=== PATIENT | female | born 1955 | race Caucasian/White ===

== ENCOUNTER 2017-01-27 11:38 | Emergency (ER) | payer BC ==
[~2017-01-27] VITALS: Ht 160 cm; Wt 73.0 kg
[2017-01-27 11:58] LABS: BASOPHILS # (AUTO) 0.1 10^3/uL (0.0-0.1); BASOPHILS % (AUTO) 1 % (0-10); EOSINOPHILS # (AUTO) 0.2 10^3/uL (0.0-0.3); EOSINOPHILS % (AUTO) 2 % (0-10); LYMPHOCYTES # (AUTO) 1.8 X 10^3 (1.0-4.0); LYMPHOCYTES % (AUTO) 20 % (12-44); MEAN CORPUSCULAR HEMOGLOBIN 30 PG (25-34); MEAN CORPUSCULAR HGB CONC 35 G/DL (32-36); MEAN CORPUSCULAR VOLUME 87 FL (80-99); MEAN PLATELET VOLUME 9.5 FL (7.4-10.4); MONOCYTES # (AUTO) 1.6 X 10^3 (0.0-1.0); MONOCYTES % (AUTO) 17 % (0-12); NEUTROPHILS # (AUTO) 5.5 X 10^3 (1.8-7.8); NEUTROPHILS % (AUTO) 60 % (42-75); PLATELET COUNT 238 10^3/uL (130-400); RED BLOOD COUNT 4.49 10^6/uL (4.35-5.85); RED CELL DISTRIBUTION WIDTH 12.5 % (10.0-14.5); WHITE BLOOD COUNT 9.1 10^3/uL (4.3-11.0)
[2017-01-27 12:04] LABS: INR 1.1 (0.8-1.4); PROTHROMBIN TIME PATIENT 13.9 SEC (12.2-14.7)
[2017-01-27 12:13] LABS: ALANINE AMINOTRANSFERASE 22 U/L (0-55); ANION GAP 11 MMOL/L (5-14); ASPARTATE AMINO TRANSFERASE 21 U/L (5-34); BILIRUBIN,TOTAL 1.6 MG/DL (0.1-1.0); BLOOD UREA NITROGEN 14 MG/DL (7-18); BUN/CREATININE RATIO 18; CALCIUM 8.9 MG/DL (8.5-10.1); CARBON DIOXIDE 22 MMOL/L (21-32); CHLORIDE 104 MMOL/L (98-107); GFR ESTIMATED > 60; GLUCOSE 101 MG/DL (70-105); MAGNESIUM 2.1 MG/DL (1.8-2.4); POTASSIUM 3.9 MMOL/L (3.6-5.0); SODIUM 137 MMOL/L (135-145); TOTAL PROTEIN 7.1 GM/DL (6.4-8.2)
--- NOTE | 2017-01-27 12:25 | Diagnostic Imaging Report ---
INDICATION: Fall and cough PA and lateral views of the chest are obtained. There is a rounded area of airspace disease involving what appears to be the superior segment of the left lower lobe. There is no evidence of pneumothorax. No significant pleural fluid is identified. IMPRESSION: Focal parenchymal density in the left lower lobe could be related to contusion from recent fall, however, the appearance is most suggestive of pneumonia. Radiographic followup is recommended to document resolution. Dictated by: Dictated on workstation # [id number]
[2017-01-27 12:31] LABS: MYOGLOBIN SERUM 57.7 NG/ML (10.0-92.0)
--- NOTE | 2017-01-27 13:02 | ED Cardiac General ---
History of Present Illness General Chief Complaint: Chest Pain Stated Complaint: SOA Nursing Triage Note: Patient reports coughing with lightheadedness and headache, patient reports passed out after a coughing fit. patient presented to [facility] urgent care and subsequently sent to the ER, via EMS. patient reports SOA. Source: patient, family Exam Limitations: no limitations History of Present Illness Time seen by provider: 11:41 Initial Comments This 61-year-old woman presents to the emergency room as a referral from [facility] Urgent Care with complaints of cough, sinus congestion, headache, and an episode of syncope. Symptoms began on January 24. She reports a coworker has been ill with similar symptoms. She has paroxysms of coughing for sometimes up to 30 minutes. She had a syncopal episode on Friday the in the shower. She denies any injury but does believe she completely lost consciousness briefly. She reports her headache was present prior to that episode. Today she reports feeling dizzy upon standing. She feels short of air and nauseated. She has also had a little bit of diarrhea. An EKG was performed at Urgent Care. She was referred to the emergency room because of concerns about a left bundle branch block. Patient denies ever having chest pain over the past few days. IV fluids were initiated by EMS. NTG SL CUT OFF SAW OPERATOR METAL: No ASA po CUT OFF SAW OPERATOR METAL: Yes (324mg) Allergies and Home Medications Allergies Coded Allergies: No Known Drug Allergies (Unverified , 01/27/17) Home Medications Azithromycin 250 Mg Tablet, 250 MG PO UD, #6 TAKE 2 TABLETS ON DAY ONE THEN TAKE 1 TABLET DAILY FOR FOUR MORE DAYS Prescribed by: CHARLES MCCLELLAND on 01/27/17 1303 Review of Systems Constitutional: no symptoms reported EENTM: No Symptoms Reported Respiratory: See HPI Cardiovascular: See HPI Gastrointestinal: See HPI Genitourinary: No Symptoms Reported Musculoskeletal: no symptoms reported Skin: no symptoms reported Psychiatric/Neurological: See HPI Endocrine: No Symptoms Reported Hematologic/Lymphatic: No Symptoms Reported Past Ngmjtdo-Iduzil-Wdreri Hx Patient Social History Alcohol Use: Denies Use Recreational Drug Use: No Smoking Status: Never a Smoker 2nd Hand Smoke Exposure: No Recent Foreign Travel: No Contact w/Someone Who Travel: No Recent Infectious Disease Expo: No Recent Hopitalizations: No Physical Abuse: No Sexual Abuse: No Surgeries History of Surgeries: Yes Surgeries: Appendectomy, Eye Surgery, Gallbladder, Hysterectomy Respiratory History of Respiratory Disorde: No Cardiovascular History of Cardiac Disorders: No Neurological History of Neurological Disord: No Genitourinary History of Genitourinary Disor: No Gastrointestinal History of Gastrointestinal Di: No Musculoskeletal History of Musculoskeletal Dis: No Endocrine History of Endocrine Disorders: No HEENT History of HEENT Disorders: No Cancer History of Cancer: No Psychosocial History of Psychiatric Problem: No Suicide Risk Score: 0 Integumentary History of Skin or Integumenta: No Blood Transfusions History of Blood Disorders: No Physical Exam Vital Signs Vital Sign - Last 12Hours 01/27/17 11:45 Temp 99.3 Pulse 117 Resp 16 B/P (MAP) 129/81 Pulse Ox 94 O2 Delivery Room Air Capillary Refill : Less Than 3 Seconds General Appearance: No Apparent Distress, WD/WN HEENT: PERRL/EOMI, Normal ENT Inspection Neck: Normal Inspection Respiratory: Lungs Clear, Normal Breath Sounds, No Accessory Muscle Use, No Respiratory Distress Cardiovascular: No Edema, No Murmur, Tachycardia (with regular rhythm) Gastrointestinal: Normal Bowel Sounds, Non Tender, Soft Extremity: Normal Inspection, No Pedal Edema Neurologic/Psychiatric: Alert, Oriented x3, No Motor/Sensory Deficits, Normal Mood/Affect, strategic advisor II-XII Norm as Tested Skin: Normal Color, Warm/Dry Progress/Results/Core Measures Results/Orders Lab Results Laboratory Tests Test 01/27/17 11:43 Range/Units White Blood Count 9.1 4.3-11.0 10^3/uL Red Blood Count 4.49 4.35-5.85 10^6/uL Hemoglobin 13.5 11.5-16.0 G/DL Hematocrit 39 35-52 % Mean Corpuscular Volume 87 80-99 FL Mean Corpuscular Hemoglobin 30 25-34 PG Mean Corpuscular Hemoglobin Concent 35 32-36 G/DL Red Cell Distribution Width 12.5 10.0-14.5 % Platelet Count 238 130-400 10^3/uL Mean Platelet Volume 9.5 7.4-10.4 FL Neutrophils (%) (Auto) 60 42-75 % Lymphocytes (%) (Auto) 20 12-44 % Monocytes (%) (Auto) 17 H 0-12 % Eosinophils (%) (Auto) 2 0-10 % Basophils (%) (Auto) 1 0-10 % Neutrophils # (Auto) 5.5 1.8-7.8 X 10^3 Lymphocytes # (Auto) 1.8 1.0-4.0 X 10^3 Monocytes # (Auto) 1.6 H 0.0-1.0 X 10^3 Eosinophils # (Auto) 0.2 0.0-0.3 10^3/uL Basophils # (Auto) 0.1 0.0-0.1 10^3/uL Prothrombin Time 13.9 12.2-14.7 SEC INR Comment 1.1 0.8-1.4 Activated Partial Thromboplast Time 31 24-35 SEC Sodium Level 137 135-145 MMOL/L Potassium Level 3.9 3.6-5.0 MMOL/L Chloride Level 104 98-107 MMOL/L Carbon Dioxide Level 22 21-32 MMOL/L Anion Gap 11 5-14 MMOL/L Blood Urea Nitrogen 14 7-18 MG/DL Creatinine 0.80 0.60-1.30 MG/DL Estimat Glomerular Filtration Rate > 60 BUN/Creatinine Ratio 18 Glucose Level 101 70-105 MG/DL Calcium Level 8.9 8.5-10.1 MG/DL Magnesium Level 2.1 1.8-2.4 MG/DL Total Bilirubin 1.6 H 0.1-1.0 MG/DL Aspartate Amino Transf (AST/SGOT) 21 5-34 U/L Alanine Aminotransferase (ALT/SGPT) 22 0-55 U/L Alkaline Phosphatase 73 40-136 U/L Myoglobin 57.7 10.0-92.0 NG/ML Troponin I < 0.30 <0.30 NG/ML Total Protein 7.1 6.4-8.2 GM/DL Albumin 4.0 3.2-4.5 GM/DL My Orders Orders - CHARLES BERMAN MD Ekg Tracing (01/27/17 11:41) Cbc With Automated Diff (01/27/17 11:53) Magnesium (01/27/17 11:53) Cardiac Profile 1 (01/27/17 11:53) Comprehensive Metabolic Panel (01/27/17 11:53) Myoglobin Serum (01/27/17 11:53) Protime With Inr (01/27/17 11:53) Partial Thromboplastin Time (01/27/17 11:53) O2 (01/27/17 11:53) Monitor-Rhythm Ecg Trace Only (01/27/17 11:53) Saline Lock/Iv-Start (01/27/17 11:53) Chest Pa/Lat (2 View) (01/27/17 11:53) Vital Signs/I&O Vital Sign - Last 12Hours 01/27/17 01/27/17 01/27/17 11:45 11:45 13:15 Temp 99.3 Pulse 117 106 Resp 16 18 B/P (MAP) 129/81 Pulse Ox 94 94 O2 Delivery Room Air Room Air Room Air Blood Pressure Mean: 97 Progress Note : Progress Note Patient was found to have a left lower lobe pneumonia on workup. She was given a liter of IV fluids with some improvement in her tachycardia. A prior EKG could not be obtained. Left bundle branch block in absence of chest pain was discussed with Dr. Stover. He would like the patient to follow-up in the office for further evaluation. ECG Initial ECG Impression Date: Jan 27, 2017 Initial ECG Impression Time: 11:41 Initial ECG Rate: 113 Initial ECG Rhythm: S.Tach Comment Sinus tachycardia with no ST elevation or depression. Left bundle branch block. No significant axis deviation. Diagnostic Imaging Diagonstic Imaging: Xray Plain Films/CT/US/NM/MRI: chest Comments Chest x-ray viewed by me and report reviewed. See report below: NAME: AUBREY LERMA [facility] REC#: [id number] PT STATUS: DEP ER : [id number] PHYSICIAN: CHARLES BERMAN MD ADMIT DATE: 01/27/17/ER Signed Date of Exam: 01/27/17 CHEST PA/LAT (2 VIEW) INDICATION: Fall and cough PA and lateral views of the chest are obtained. There is a rounded area of airspace disease involving what appears to be the superior segment of the left lower lobe. There is no evidence of pneumothorax. No significant pleural fluid is identified. IMPRESSION: Focal parenchymal density in the left lower lobe could be related to contusion from recent fall, however, the appearance is most suggestive of pneumonia. Radiographic followup is recommended to document resolution. Dictated by: Dictated on workstation # [id number] Dict: 01/27/17 1220 Trans: 01/27/17 1427 Interpreted by: NURIS ESCOBAR MD Electronically signed by: NURIS ESCOBAR MD 01/27/17 1427 Departure Impression Impression: Primary Impression: Left lower lobe pneumonia Qualified Codes: J18.1 - Lobar pneumonia, unspecified organism Additional Impressions: Syncope Qualified Codes: R55 - Syncope and collapse Left bundle branch block Disposition: 01 HOME, SELF-CARE Condition: Improved Departure-Patient Inst. Decision time for Depature: 12:55 Referrals: AGAPITO STOVER MD ,LOCAL PHYSICIAN (PCP) Primary Care Physician Patient Instructions: Community-Acquired Pneumonia in Adults Add. Discharge Instructions: Complete your antibiotics as prescribed. Drink plenty of clear liquids. Follow-up with Dr. Pedroza and Dr. Stover as soon as possible. You may need a referral from Dr. Pedroza before seeing Dr. Stover. Return to the emergency room if symptoms worsen. Please asked Dr. Pedroza to obtain a follow-up x-ray in a week or two to document resolution of your pneumonia. All discharge instructions reviewed with patient and/or family. Voiced understanding. Scripts Azithromycin (Azithromycin) 250 Mg Tablet 250 MG PO UD, #6 TAB TAKE 2 TABLETS ON DAY ONE THEN TAKE 1 TABLET DAILY FOR FOUR MORE DAYS Prov: CHARLES BERMAN MD 01/27/17 Work/School Note: Work Release Form Date Seen in the Emergency Department: Jan 27, 2017 Return to Work: Jan 29, 2017 Restrictions: No Restrictions Copy Copies To 1: ISABEL PEDROZA MD Copies To 2: AGAPITO STOVER MD, JOSHUA T MD Jan 27, 2017 13:02
[2017-01-27] MEDS ORDERED: AZIT250T5 PO (13:03)
[2017-01-27 13:15] VITALS: BP 122/94
== END 2017-01-27 13:15 | disposition home or self-care (01) ==
LOC: EDUNIT# 11:38 → ER 11:40
DX: J18.1 Lobar pneumonia, unspecified organism (principal); I44.7 Left bundle-branch block, unspecified; Z90.49 Acquired absence of other specified parts of digestive tract; Z90.710 Acquired absence of both cervix and uterus
CPT/HCPCS: 36415; 71020; 80053; 83735; 83874; 84484; 85025; 85610; 85730; 93005; 93041

== ENCOUNTER → 2017-05-21 | Outpatient (CLI) | payer BC ==
[~2017-05-21] MED LIST: AZIT250T12 PO; CATHETER FLUSH 10 ML SYR IV PRN; REGADENOSON 0.4 MG/5 ML SYR (LEXISCAN) IV ONE
[2017-05-21 14:11] VITALS: BP 156/92
[2017-05-21 14:13] VITALS: BP 143/87
--- NOTE | 2017-05-22 01:24 | STRESS TEST ---
DATE OF SERVICE: 05/21/2017 LEXISCAN MYOVIEW STRESS TEST REPORT Baseline heart rate is 90, baseline blood pressure 126/75. Baseline EKG is sinus rhythm with left bundle branch block. In summary, patient was injected with 10.44 mCi of technetium-99 Myoview and the resting images were obtained. Then, the patient received 0.4 mg of Lexiscan followed by 30.9 mCi of technetium-99 Myoview. Throughout the test patient continued to have left bundle branch block. The resting and stress images were reviewed and compared in the short axis, horizontal long axis, and vertical long axis views. Review of the images showed breast attenuation, there is reversible ischemia involving the mid to apical anterior wall, anterior septum reverse ischemia at the basal to mid inferior wall and inferolateral wall. SSS is 12. SDS 7, TID value 1.03. On the gated images, the left ventricle appeared to be normal size with mild diffuse left ventricular hypokinesia, calculated ejection fraction 40%. CONCLUSION: 1. The patient tolerated Lexiscan well. 2. Breast attenuation with mild ischemia involving the mid to apical anterior wall, anterior septum and ischemia involving the basal to mid inferior wall and inferolateral wall. 3. Normal left ventricular size with mild diffuse left ventricular hypokinesia, calculated ejection fraction 40%. Job ID: [id number] DocumentID: [id number] Dictated Date: 05/21/2017 17:37:13 Oxyhydrogen Welder Date: 05/22/2017 00:08:55 Dictated By: AGAPITO RAO MD
== END ==
LOC: CARD 11:41
PROVIDERS: ATTEND Physician Assistant
DX: R07.9 Chest pain, unspecified (principal); I44.7 Left bundle-branch block, unspecified; R94.31 Abnormal electrocardiogram [ECG] [EKG]; R00.0 Tachycardia, unspecified
CPT/HCPCS: 78452; 93017

== ENCOUNTER 2017-05-28 07:25 | Day surgery (SDC) | payer BC ==
[2017-05-28] VITALS (10 sets, daily range): BP systolic 110–143; BP diastolic 57–90
[~2017-05-28] VITALS: Ht 160 cm; Wt 74.8 kg
[~2017-05-28 07:25] MED LIST changes: -CATHETER FLUSH 10 ML SYR IV PRN; -REGADENOSON 0.4 MG/5 ML SYR (LEXISCAN) IV ONE
[2017-05-28] MEDS ORDERED: LIDOCAINE 1% INJ 50 ML (XYLOCAINE) VIAL ONE (07:44)
[2017-05-28] MEDS ORDERED: HEParin (CATH LAB) 2,000 ML IV ONE (07:44)
[2017-05-28] MEDS ORDERED: NS IV 1000 ML 1,000 ML ONE (07:44)
[2017-05-28 08:13] LABS: BILIRUBIN,URINE NEGATIVE (NEGATIVE); CLARITY,URINE CLEAR; COLOR,URINE YELLOW; GLUCOSE, URINE (UA) NEGATIVE (NEGATIVE); KETONES,URINE NEGATIVE (NEGATIVE); LEUKOCYTE ESTERASE ,URINE 2+ (NEGATIVE); NITRITE,URINE NEGATIVE (NEGATIVE); PH,URINE 5 (5-9); PROTEIN,URINE NEGATIVE (NEGATIVE); UROBILINOGEN,URINE NORMAL (NORMAL)
[2017-05-28 08:14] LABS: HEMOGLOBIN 15.3 G/DL (11.5-16.0); MEAN PLATELET VOLUME 9.1 FL (7.4-10.4); RED BLOOD COUNT 5.07 10^6/uL (4.35-5.85); RED CELL DISTRIBUTION WIDTH 12.7 % (10.0-14.5); WHITE BLOOD COUNT 8.1 10^3/uL (4.3-11.0)
[2017-05-28 08:23] LABS: BACTERIA,URINE FEW /HPF; RBC,URINE 0-2 /HPF; WBC,URINE 0-2 /HPF
[2017-05-28] MEDS ORDERED: NS IV 1000 ML 1,000 ML IV SCH ×2 (08:30→09:15)
[2017-05-28 08:33] LABS: ALANINE AMINOTRANSFERASE 30 U/L (0-55); ALBUMIN 4.4 GM/DL (3.2-4.5); ALKALINE PHOSPHATASE 80 U/L (40-136); BILIRUBIN,TOTAL 1.1 MG/DL (0.1-1.0); BUN/CREATININE RATIO 21; CALCIUM 9.7 MG/DL (8.5-10.1); CARBON DIOXIDE 25 MMOL/L (21-32); CHLORIDE 107 MMOL/L (98-107); CREATININE SERUM 0.78 MG/DL (0.60-1.30); GFR ESTIMATED > 60; GLUCOSE 96 MG/DL (70-105); POTASSIUM 4.3 MMOL/L (3.6-5.0); SODIUM 142 MMOL/L (135-145); TOTAL PROTEIN 7.6 GM/DL (6.4-8.2)
[2017-05-28] MEDS ORDERED: MULT-884 PO (08:41)
[2017-05-28] MEDS ORDERED: SOY155CA PO (08:41)
[2017-05-28] MEDS ORDERED: MIDAZOLAM 5 MG/5 ML (VERSED) VIAL ONE (08:41)
[2017-05-28] MEDS ORDERED: ASPI-983 PO (08:41)
[2017-05-28] MEDS ORDERED: METO-351 PO (08:41)
[2017-05-28] MEDS ORDERED: BIOT5000 PO (08:41)
[2017-05-28] MEDS ORDERED: VITA100C20 PO (08:41)
[2017-05-28] MEDS ORDERED: fentaNYL INJECTION 100 MCG/2 ML AMP ONE (08:42)
--- NOTE | 2017-05-28 08:43 | Cardiac Procedure Note-CS/ASA ---
Pre-Procedure Note Pre-Op Procedure Note H&P Reviewed The H&P was reviewed, patient examined and no changes noted. Date H&P Reviewed: May 28, 2017 Time H&P Reviewed: 08:43 Conscious Sedation Pre-Proced Time Reviewed: 08:43 ASA Class: 3 Airway Mallampati Classification: ([place] appropriate class) I. II. III, IV Lungs Heart ASA score ASA 1: a normal healthy patient ASA 2: a patient with a mild systemic disease (mid diabetes, controlled hypertension, obesity x ASA 3: a patient with a severe systemic disease that limits activity (angina , COPD, prior Myocardial infarction) ASA 4: a patient with an incapacitating disease that is a constant threat to life (CHF, renal failure) ASA 5: a moribund patient not expected to survive 24 hrs. (ruptured aneurysm) ASA 6: a declared brain patient whose organs are being harvested. For emergent operations, add the letter E after the classification Grade 3 Sedation Plan: Analgesia, Amnesia, Plan communicated to team members, Discussed options with patient/fam, Discussed risks with patient/fam Note The patient is an appropriate candidate to undergo the planned procedure, sedation, and anesthesia. The patient immediately re-assessed prior to indication. AGAPITO RAO MD May 28, 2017 08:43
[2017-05-28 08:56] LABS: PROTHROMBIN TIME PATIENT 13.3 SEC (12.2-14.7)
--- NOTE | 2017-05-28 09:13 | Diagnostic Imaging Report ---
EXAMINATION: Portable erect AP chest at 0750 AM INDICATION: Preop heart catheter The heart size is within normal limits and stable when compared to 01/17/2017. The previous study did show prominent areas of pneumonia/atelectasis in the left perihilar region. That abnormality has resolved. The lungs are now clear and well aerated. There is no sign of failure, pneumonia or pleural effusion to indicate an acute abnormality. The mediastinum is not widened. The osseous structures are intact. IMPRESSION: There is no evidence for an acute cardiopulmonary abnormality. Dictated by: Dictated on workstation # [id number]
[2017-05-28] MEDS ORDERED: PATIENT MAY USE OWN MEDS, ALL PO SCH (09:15)
--- NOTE | 2017-05-28 09:17 | Discharge Inst-Post CATH ---
Discharge Inst-CATH Post Cardiac Cath D/C Inst Follow Up/Plan Appointment with Dr. Stover's office in 2-4 weeks CARDIAC CATH DISCHARGE INSTRUCTIONS *Hold Metformin for 48 hours post heart cath. ACTIVITY * Go Home directly and rest. * Limit activity of the leg (or wrist if it was used) for 7 days including aerobics, swimming, jogging, bicycling, etc. * Restrict stair-climbing for 7 days if possible, if not, climb up with your non -cath leg, then bring together on the same step. * Avoid lifting, pushing, pulling or excessive movement of the affected extremity for 7 days. * Customary sexual activity may be resumed after 2 days-use caution not to use a position that strains or causes pain to the affected extremity. * No driving for 24 hours. * NO SMOKING. * Avoid straining for bowel movements for 7 days. * Gentle walking on level ground is allowed. * Returning to work will depend on the type of procedure and the results. Your doctor will discuss this with you. CALL YOUR DOCTOR FOR ANY OF THE FOLLOWING: *If bleeding from the puncture site occurs- Apply gentle pressure to site with clean cloth and call your doctor or EMS. * If a knot or lump forms under the skin, increases in size, or causes pain. * If bruising appears to be worsening or moving further down your leg instead of disappearing. * Temperature above 101 F. CARE OF YOUR GROIN INCISION; * Bruising or purple discoloration of the skin near the puncture site is common. * You may shower only, no bathtub bathing for 5 days. Be careful to avoid slipping as your leg may feel stiff. * If a closure device was used on your femoral artery, please see the attached guide regarding care of the device and your leg. * REMOVE the dressing from your groin the next day after your procedure in the shower. CARE OF YOUR WRIST INCISION; * Bruising or purple discoloration of the skin near the puncture site is common. * You may shower. * DO NOT submerge wrist. * Remove dressing in 24 hours. AGAPITO STOVER MD May 28, 2017 09:17
--- NOTE | 2017-05-28 09:20 | Cardiac Cath Report ---
Cardiac Cath Report Physician (s)/Diesel Engine Fitter (s) Physician AGAPITO RAO MD Pre-Procedure Diagnosis Pre-Procedure Diagnosis: Coronary artery disease, chest pain Post-Procedure Note Procedure Start Date: May 28, 2017 Name of Procedure: Left heart catheterization Findings/Procedure Note PROCEDURE NOTE: After explaining the procedure to the patient, all pros and cons were explained, all questions were answered. The patient signed the consent and then she was placed on the cardiac catheterization laboratory. The patient was placed on the cardiac catheterization laboratory. Groin was prepped SL fashion local anesthesia was used. Sheath placed in the artery. Jacinta right and left catheter were used to access the coronary system. Jacinta right was used to cross the aortic valve to the left ventricular cavity , pressure was measured, no left ventriculogram was done At the end of the procedure the sheath was removed. Closure device was used FINDINGS: Hemodynamics LV 126/10 end-diastolic pressure of 10 Aorta 122/68 mean of 88 ANATOMY: Left Main is free of obstructive disease Left Anterior Descending is mildly tortuous with mild myocardial bridging with no obstructive disease Left Circumflex is dominant with mild disease nonobstructive disease Right Coronory Artery is small nondominant artery LV Gram was not done, pressure was measured CONCLUSION: 1. 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 normal left ventricular end-diastolic pressure DISCUSSION AND RECOMMENDATION: medical therapy is recommended no intervention is needed Anesthesia Type: Conscious Sedation Estimated blood loss (mL): 10ml Contrast Amount: 28 ml Total Radiation Dose: 127 ml Post-Procedure Diagnosis Post-operative diagnosis: Coronary artery disease Chest pain nonspecific etiology Hypertension Hyperlipidemia AGAPITO RAO MD May 28, 2017 09:20
[2017-05-28] MEDS ORDERED: LISI-556 PO (12:08)
== END 2017-05-28 13:54 | disposition home or self-care (01) ==
LOC: CATH 07:25 → SURG 09:39 → CATH 13:54
PROVIDERS: ATTEND Internal Medicine Cardiovascular Disease
DX: I25.10 Atherosclerotic heart disease of native coronary artery without angina pectoris (principal); Z11.2 Encounter for screening for other bacterial diseases; Z79.899 Other long term (current) drug therapy; R94.39 Abnormal result of other cardiovascular function study; R55 Syncope and collapse; I50.20 Unspecified systolic (congestive) heart failure; I44.7 Left bundle-branch block, unspecified; R07.89 Other chest pain
CPT/HCPCS: 36415; 36430; 71045; 80053; 81000; 85027; 85610; 85730; 87081; 87088; 93458

== ENCOUNTER 2020-06-02 05:29 | Outpatient (RCR) | payer BC ==
[~2020-06-02] VITALS: Ht 160 cm; Wt 61.4 kg
[~2020-06-02 05:29] MED LIST changes: +ASPI-1238 PO; +BIOT5000 PO; +LISI-556 PO; +METO-351 PO; +MULT-884 PO; +SOY155CA PO; +VITA100C22 PO
== END 2020-06-02 10:03 | disposition home or self-care (01) ==
LOC: PREOP 05:29
PROVIDERS: ATTEND Podiatrist Foot & Ankle Surgery
DX: Z01.812 Encounter for preprocedural laboratory examination (principal); M20.41 Other hammer toe(s) (acquired), right foot; M20.11 Hallux valgus (acquired), right foot; M77.41 Metatarsalgia, right foot; Z20.822 Contact with and (suspected) exposure to COVID-19
CPT/HCPCS: 87635

== ENCOUNTER 2020-06-05 06:46 | Day surgery (SDC) | payer BC ==
[2020-06-05] VITALS (11 sets, daily range): BP systolic 111–145; BP diastolic 61–76
[~2020-06-05] VITALS: Ht 160 cm; Wt 61.4 kg
[2020-06-05] MEDS ORDERED: MIDAZOLAM 2 MG/2 ML (VERSED) VIAL ONE (07:09)
[2020-06-05] MEDS ORDERED: proPOfol 200 MG/20 ML (DIPRIVAN) VIAL IV ONE (07:09)
[2020-06-05] MEDS ORDERED: fentaNYL INJECTION 100 MCG/2 ML AMP ONE (07:09)
[2020-06-05] MEDS ORDERED: ONDANSETRON 4 MG/2 ML (SDV) Z0FRAN ONE ×2 (07:14→07:27)
[2020-06-05] MEDS ORDERED: SEVOFLURANE (ULTANE) 15 ML INHAL SOLN ONE ×9 (07:14→11:53)
[2020-06-05] MEDS ORDERED: BUPIVACAINE 0.5% 30 ML (SENSORCAINE) VIAL ONE ×2 (07:17→11:44)
[2020-06-05] MEDS ORDERED: ceFAZolin INJECTION 1,000 MG ONE (07:26)
[2020-06-05] MEDS ORDERED: WATER (STERILE) FOR INJECTION 10 ML ONE (07:27)
[2020-06-05] MEDS ORDERED: SCOPOLAMINE 1.5 MG (TRANSDERM-SCOP) PATCH ONE (07:27)
[2020-06-05] MEDS ORDERED: FAMOTIDINE 20MG/2ML IV (PEPCID) ONE (07:28)
[2020-06-05] MEDS ORDERED: FAMOTIDINE 20MG/2ML IV (PEPCID) IV ONE (07:30)
[2020-06-05] MEDS ORDERED: SCOPOLAMINE 1.5 MG (TRANSDERM-SCOP) PATCH TOP ONE (07:30)
[2020-06-05] MEDS ORDERED: ONDANSETRON 4 MG/2 ML (SDV) Z0FRAN IV ONE (07:30)
[2020-06-05] MEDS ORDERED: ceFAZolin INJECTION 1,000 MG in WATER (STERILE) FOR INJECTION 10 ML IV ONE (07:45)
[2020-06-05] MEDS: LACTATED RINGERS 1,000 ML IV PRN ×2 (07:53→09:39)
--- NOTE | 2020-06-05 08:56 | Progress Note-Pre Operative ---
Pre-Operative Progress Note H&P Reviewed The H&P was reviewed, patient examined and no changes noted. Date Seen by Provider: Jun 05, 2020 Time Seen by Provider: 08:56 Date H&P Reviewed: Jun 05, 2020 Time H&P Reviewed: 08:56 Pre-Operative Diagnosis: Hallux Valgux, hypertrophic 2nd metatarsal, 2nd hammertoe, right IGGY,TERRI Q DPM Jun 05, 2020 08:56
--- NOTE | 2020-06-05 12:06 | Progress Note-Post Operative ---
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
[2020-06-05] MEDS ORDERED: CEPH500C PO (12:09)
[2020-06-05] MEDS ORDERED: ACHD5005 PO (12:09)
[2020-06-05] MEDS ORDERED: LACTATED RINGERS 1,000 ML IV SCH (12:15)
[2020-06-05] MEDS ORDERED: HYDROcodone/APAP 5 MG/325 MG (LORTAB) TAB PO PRN (12:15)
[2020-06-05] MEDS ORDERED: HYDROmorphone 2 MG/ML VIAL (DILAUDID) IV ONE (12:15)
[2020-06-05] MEDS ORDERED: ONDANSETRON 4 MG/2 ML (SDV) Z0FRAN IVP PRN (12:15)
--- NOTE | 2020-06-05 12:52 | Diagnostic Imaging Report ---
INDICATION: Bunionectomy and fluoroscopy. Fluoroscopy was provided in the OR during right foot surgery. 9 seconds of fluoroscopic time was utilized. Images demonstrate a plate and numerous screws transecting the 1st metatarsal. 2 images were obtained. IMPRESSION: Fluoroscopy for right foot surgery. Dictated by: Dictated on workstation # [id number]
--- NOTE | 2020-06-05 14:18 | Diagnostic Imaging Report ---
INDICATION: Postop right hallux valgus repair and hammertoe repair. AP and lateral views of the right foot are obtained. There is no prior study for comparison. There is an osteotomy of the first proximal phalanx with wires in place in good alignment. Plate and screws are seen in the proximal mid aspect of the first metatarsal with a single screw across the first tarsometatarsal joint. There is a first metatarsal osteotomy. There are anchor screws across the second metatarsal head. There is a fixation pin across the second DIP and PIP joints with anatomic alignment. There is no unexpected foreign body post surgery. IMPRESSION: Multifocal postoperative findings in the right foot as described above. No acute abnormality is seen. The alignment is anatomic at the operative sites. Dictated by: Dictated on workstation # [id number]
--- NOTE | 2020-06-05 14:27 | Physical Therapy Ortho Eval ---
PT Orthopedic Evaluation Type of Surgery tomás luciano Prior Level of Function Current Living Status: Spouse Locomotion (Upon Admit): Independent Established Durable Medical Eq: Front Wheeled Walker, Crutches patient also has a rollator. Subjective Subjective Pt agreeable to PT. Reports she was planning on using a rollator at home. Spouse verbalized that the rollator is what he used once when he was NWB. Both report they have crutches and rollator at home and they think they have a FWW. Discussed places/options to get a FWW if they can't find one. Entry Into Home: Stairs With Railing Steps Into Home: 2 Steps Inside Home: 0 Objective Objective Pt has a CAM boot she is to wear; applied it and instructed pt and spouse in application of boot. Verbalized understanding. Motor Control Motor Control: Motor Control WNL ROM ROM: WFL Strength Strength: WFL Transfer SCALE: Activities may be completed with or without assistive devices. 9-Ojtsycmxls-giefarh completes the activity by him/herself with no assistance fr om a helper. 5-Set-up or Clean-up Assistance-helper sets up or cleans up; patient completes activity. Theodore assists only prior to or following the activity. 4-Supervision or Touching Assistance-helper provides verbal cues and/or touching/steadying and/or contact guard assistance as patient completes activity. Assistance may be provided throughout the activity or intermittently. 3-Partial/Moderate Assistance-helper does LESS THAN HALF the effort. Theodore lifts, holds or supports trunk or limbs, but provides less than half the effort. 2-Substantial/Maximal Assistance-helper does MORE THAN HALF the effort. Theodore lifts or holds trunk or limbs and provides more than half the effort. 5-Wmokbqtbj-fcmxcq does ALL the effort. Patient does none of the effort to complete the activity. Or, the assistance of 2 or more helpers is required for the patient to complete the activity. If activity was not attempted, code reason: 7-Patient Refused. 9-Not Applicable-not attempted and the patient did not perform the activity before the current illness, exacerbation or injury. 10-Not Attempted due to Environmental Limitations-(lack of equipment, weather restraints, etc.). 88-Not Attempted due to Medical Conditions or Safety Concerns. Transfers (B, C, W/C) (QC): 4 Instructed pt in sit to stand transfer technique and sequencing; reviewed NWB status R. Gait Gait Assistive Device: FWW, Crutches Instructed pt in use of FWW and crutches; she is unsure of which she plans to use at home. Pt is CGA with crutches and slightly unsteady; CGA with FWW but steady. Right Lower Extremity: Right Weight Bearing Status RLE: Non Weight Bearing Left Lower Extremity: Left Weight Bearing Status LLE: Full Weight Bearing Instructed pt in NWB status, voiced and demonstrated understanding. Gait (QC): 4 (CGA for safety. ) Distance: 100 ft x 2 Summary/Comments Pt is SBA to CGA with gait post visit; she is slightly unsteady with crutches; she is safer with use of FWW. Educated pt and spouse that the FWW would be a safer choice for ambulation, but not sure if they will decide to use it. They discussed places they could obtain a FWW if they could not find theirs at home. Pt is slightly unsteady with crutch walking, gave them the gait belt for use and instructed spouse in how to apply the gait belt. He verbalized and demonstrated correct performance. Instructed pt and spouse in technique with sequencing and safety on steps; pt demonstrated correct performance using the crutches. Also educated them on safety once in the home after walking outdoors on wet surfaces. Treatment Rendered Treatment: Gait Train, Step Train, Reviewed Precautions, Don/Doff Brace Training on level surfaces and up/down a curb step. Recommend FWW for safety but they (pt and spouse) indicate they may use the crutches. Assessment/Goals Goal Time Frame: 1 Visit Safe Ambulation: Yes NWB status with CAM boot and recommend FWW for safety. Plan Treatment Plan: Discharge Time Time In: 1330 Time Out: 1405 Total Billed Treatment Time: 35 Billed Treatment Time visit EVM 35 MORENITA FLYNN PT Jun 05, 2020 14:27
--- NOTE | 2020-06-05 20:23 | OPERATIVE REPORT ---
DATE OF SERVICE: 06/05/2020 SURGEON: Felisa Parkinson DPM. PREOPERATIVE DIAGNOSES: 1. Hallux abductovalgus with metatarsus primus varus, right. 2. Hypertrophic second metatarsal, right. 3. Hammer digit syndrome, right second toe. POSTOPERATIVE DIAGNOSES: 1. Hallux abductovalgus with metatarsus primus varus, right. 2. Hypertrophic second metatarsal, right. 3. Hammer digit syndrome, right second toe. 4. Degenerative joint disease to the right first metatarsophalangeal joint. PROCEDURES: 1. Arthrodesis to the right first metatarsal cuneiform joint. 2. Clarence bunionectomy, right. 3. Second metatarsal osteotomy with screw fixation. 4. Reduction of hammertoe, right second digit with K-wire fixation. WOUND CLASS: Clean. ANESTHESIA: General. HEMOSTASIS: Pneumatic thigh tourniquet at 300 mmHg. INDICATIONS: This 65-year-old female presents complaining of a painful right foot. Conservative therapy is met with unsatisfactory results and the patient is agreeable to surgical intervention after risks and complications were discussed at length. No guarantees were extended to the patient and she is willing to proceed. DESCRIPTION OF PROCEDURE: The patient was brought back to the operating table, placed in secure supine position. General anesthetic was then induced. Appropriate timeout was performed. The right foot was anesthetized utilizing aseptic technique with 1:1 mixture of 1% Xylocaine, 0.5% Marcaine injected in a Chand block and a second ray block utilizing 12 mL. The right foot was then prepped and draped in normal sterile manner. Of course, there was a thigh tourniquet on the right lower extremity over several layers of padding. Once the foot was prepped, the right lower extremity was elevated, allowed to exsanguinate after which the tourniquet was inflated to 300 mmHg. Attention was then directed to the dorsal aspect of the first metatarsal cuneiform joint where a 4 cm longitudinal linear incision was created. The incision was deepened in same plane with great care to identify and retract all vital neurovascular structures. The incision was deepened down to the capsular tissue where a longitudinal capsulotomy was performed overlying the first metatarsal medial cuneiform joint. The capsular tissue was reflected and the joint space was inspected. There is a significant medial deviation of the first metatarsal on the cuneiform. For realignment a [place] 28 Lapidus 4-hole standard plate was utilized. To prep the joint, the base of the first metatarsal was cut perpendicular to the long axis of the first metatarsal. The cut to the distal aspect of the medial cuneiform was cut perpendicular to the long axis of the second metatarsal. Once the articular cartilage was removed, the base of the first metatarsal and distal aspect of the medial cuneiform were fenestrated allowed for good bleeding bone. The area was flushed with copious amounts of normal saline. A K-wire was driven from proximal inferior to the distal superior and a guidewire was driven from dorsal distal to plantar proximal. Intraoperative C-arm indicated appropriate reduction of the malalignment of the first metatarsal. Excellent bony apposition was appreciated at this time. Next, utilizing a headless [place] 3.5 screw 44 mm of length driven from distal dorsal to plantar proximal. The excellent compression was achieved across the arthrodesis site. Next, the Lapidus 4-hole standard plate was applied after which 5 locking screws were applied. Two proximal were 16 mm 3.5 locking screws, the most distal screw for the plate was a 14 mm, 3.5 locking screw. The intermediate and plantar screws were 12 mm 3.5 locking screws. Intraoperative C-arm indicated appropriate reduction and fixation at this time. Attention was then directed to the lateral deviation of the right hallux at the metatarsophalangeal joint. A 4 cm longitudinal linear incision was created at the dorsal medial aspect of the first metatarsophalangeal joint. The incision was deepened in the same plane with great care to identify and retract all vital neurovascular structures. Only necessary blood vessels were cauterized as encountered. The incision was deepened down to the capsule tissue where a longitudinal capsulotomy was performed and reflected medial and laterally. The dorsal eminence to the first metatarsal head was resected utilizing a power sagittal saw as well as the medial eminence. Attention was directed to the base of the proximal phalanx of the hallux as well as the head to the first metatarsal where a full-thickness degeneration of the articular cartilage was identified. Some granular tissue was identified. These areas were fenestrated with a 0.035 K-wire. The dorsal and medial spurring to the base of the proximal phalanx were also reduced with a rongeur and smoothed with a hand rasp. The area was cleansed with copious amounts of normal saline. Attention was then directed into the lateral aspect of the first metatarsophalangeal joint where a lateral release was performed. The conjoint tendon of the adductor hallucis was released as well as the lateral capsule was released. This allowed the hallux to come into more rectus alignment, but was still insufficient correction. It was then decided that an Clarence type osteotomy was then to be performed. Utilizing a power sagittal saw, a wedge was resected from the diaphysis of the proximal phalanx with the base medial and the lateral cortices held intact. A commuter pilot hole was created at the dorsal medial aspect of the osteotomy and a 28-gauge monofilament wire passed through and securing the osteotomy in a closed position. Excellent alignment as well as bony apposition was appreciated. The wound was flushed with copious amounts of normal saline. Closure was then performed in layers. Both the proximal and distal incisions were reduced with a 3-0 Vicryl for deep closure, 4-0 Vicryl for superficial and 4-0 Prolene in a horizontal mattress type stitch was performed for skin closure. It should also be noted that due to the medial placement of the Lapidus plate, the most inferior aspect of the plate needed an ancillary incision of approximately 0.5 cm for screw placement. This area was also flushed with copious amounts of normal saline and a single stitch was applied with 4-0 Prolene for closure. Attention was then directed to the second ray in the right foot where a 3.5 cm longitudinal linear incision was created starting at the metatarsal head and extending onto the proximal phalanx of the toe. The incision was deepened in same plane with great care to identify and retract all vital neurovascular structures. Only necessary blood vessels were cauterized as encountered. The incision was deepened down to the extensor tendon where a Z slide lengthening was performed. The extensor tendon was reflected proximally and the extensor bull released overlying the metatarsophalangeal joint. The medial collateral ligaments were released to the metatarsophalangeal joint. This improved alignment of the second toe and allowed to come down into more rectus alignment. Next, a Wyatt type osteotomy was performed. Utilizing a power sagittal saw with the blade a horizontal to what would be the weightbearing surface for the patient, the cut began at the most dorsal aspect of the articular cartilage of the second metatarsal head. The cut progressed proximally, again with the same plane as what would be the weightbearing surface for the patient. This allowed the capital fragment to translocate proximally and medially. The osteotomy was fixated in its new position utilizing #2 snap-off screws, both were 12 mm of length and a 2-0 in diameter. Excellent bony apposition and fixation was appreciated at this time. The head of the second metatarsal was contoured. There is a semiflexible contracture of the right second toe. Utilizing a 0.054 smooth K-wire driven from distal to proximal, the digit was held in rectus alignment. The K-wire was driven from the distal phalanx of the proximal phalanx and the excess K-wire was cut and a protective ball placed over the end of the wire. The wound was flushed with copious amounts of normal saline and closure was then performed in layers. Deep closure was performed with 3-0 Vicryl, superficial with 4-0 Vicryl, skin closed with 4-0 Prolene in a horizontal mattress type stitch. Postoperative injection consisted of 18 mL of 0.5% Marcaine injected in a local infusion to the surgical site to the first and second rays. Postoperative injection also included 10 mg dexamethasone into the first intermetatarsal space, right foot. Postoperative dressing consisted of Betadine soaked Adaptic, sterile 4 x 4, sterile Kerlix all secured with a Coban wrap. The patient tolerated the anesthesia and procedure well, was transported from the operating room to the recovery room with vital signs stable and vascular status intact to all digits of the right foot. The patient is to follow up in my office in 10 days' period of time or sooner if necessary. In the meantime, she is to be nonweightbearing on the right lower extremity. She was given a prescription for Keflex as well as Vicodin. Job ID: [id number] DocumentID: [id number] Dictated Date: 06/05/2020 12:25:42 Facility Coordinator Date: 06/05/2020 20:23:10 Dictated By: FELISA PARKINSON DPM
--- NOTE | 2020-06-06 07:54 | Anesthesia-General Post-Op ---
General Patient Condition Mental Status/LOC: Same as Preop Cardiovascular: Satisfactory Nausea/Vomiting: Absent Respiratory: Satisfactory Pain: Controlled Complications: Absent Post Op Complications Complications None Follow Up Care/Instructions Patient Instructions None needed. Anesthesia/Patient Condition Patient Condition Patient is doing well, no complaints, stable vital signs, no apparent adverse anesthesia problems. No complications reported per nursing. D/[place] [facility]: Yes FELIPE STACY CRNA Jun 06, 2020 07:54
== END 2020-06-05 14:33 | disposition home or self-care (01) ==
LOC: SDC 06:46
PROVIDERS: ATTEND Podiatrist Foot & Ankle Surgery
DX: M20.11 Hallux valgus (acquired), right foot (principal); M20.41 Other hammer toe(s) (acquired), right foot; M19.071 Primary osteoarthritis, right ankle and foot; I10 Essential (primary) hypertension; K21.9 Gastro-esophageal reflux disease without esophagitis; I11.0 Hypertensive heart disease with heart failure; I50.9 Heart failure, unspecified; I44.7 Left bundle-branch block, unspecified; E66.9 Obesity, unspecified; Z68.24 Body mass index [BMI] 24.0-24.9, adult; Z79.899 Other long term (current) drug therapy; Z79.82 Long term (current) use of aspirin
CPT/HCPCS: 73620; 76000; 87081